=== PATIENT | male | born 1975 | race Native Hawaiian/Other Pacific Islander ===

== ENCOUNTER 2018-11-06 18:54 | Emergency (ER) | payer OTHER ==
[~2018-11-06] VITALS: Ht 182.9 cm; Wt 112.5 kg
[~2018-11-06 18:54] MED LIST: ACID CONTROL MA20 MG PO; BUSPIRONE10 MG PO; CHOL100034 PO; CITALOPRAM40 MG PO; CLON0.1T16 PO; CLON0.5T36 PO; CLON1TAB18 PO; CLONIDINE0.1 MG/21 TD; DIVA500T2 PO; DOK100 M1 PO; ESCITALOPRAM10 MG PO; MELATONIN3 M2 PO; METAMUCIL0.52 GM PO; METO25TA4 PO; OMEP40CA PO; RISP1TAB PO; ROWEEPRA500 MG PO; SIMV20TA2 PO; TIZA4TAB5 PO; TRAM50TA PO; TYLENOL325 MG PO; ZIPR20CA PO
[2018-11-06 19:00] VITALS: BP 118/58; TEMP 97.9
[2018-11-06 19:54] LABS: PLATELET COUNT 107 K/uL (142-355)
[2018-11-06 20:10] LABS: POTASSIUM 4.8 mmol/L (3.6-5.2)
[2018-11-06] MEDS ORDERED: CARBAMAZEPIN200 M1 PO (23:52)
[2018-11-06] MEDS ORDERED: DIVALPROEX500 M1 PO (23:53)
[2018-11-06] MEDS ORDERED: FAMO20TA4 PO (23:55)
[2018-11-06] MEDS ORDERED: PROVERA5 MG PO (23:58)
[2018-11-06] MEDS ORDERED: LEVO0.0723 PO (23:58)
[2018-11-06] MEDS ORDERED: MELATONIN3 M3 PO (23:59)
[2018-11-07] MEDS ORDERED: PRAVACHOL20 MG PO
[2018-11-07] MEDS ORDERED: PRAZOSIN HCL2 MG PO ×2 (00:01)
[2018-11-07] MEDS ORDERED: TRAMADOL HYDROC50 MG PO (00:03)
[2018-11-07] MEDS ORDERED: VITAMIN D31000 UNI4 PO (00:03)
== END 2018-11-06 21:47 | disposition other institution (70) ==
LOC: ED 18:54
PROVIDERS: Emergency Medicine Emergency Medical Services
DX: F03.91 Unspecified dementia, unspecified severity, with behavioral disturbance (principal); R00.1 Bradycardia, unspecified; Z79.899 Other long term (current) drug therapy; Z04.6 Encounter for general psychiatric examination, requested by authority
CPT/HCPCS: 36415; 80053; 81000; 85027; 87086; 87088; 99285